=== PATIENT | male | born 1950 | race Two or more races ===

== ENCOUNTER 2022-03-30 04:47 | Inpatient (IN) | payer OTHER ==
[~2022-03-30] VITALS: Ht 190.5 cm; Wt 133.4 kg
--- NOTE | 2022-03-30 05:01 | NUR ---
NOTED PATIENT TO HAVE WEAKNESS ON LEFT ARM, PT CLAIMED THAT HE HAD HX OF CVA. HAS SWELLING OF LEFT LEG, ABRASIONS ON RIGHT KNEE. S/P KNEE REPLACEMENT LEFT.
--- NOTE | 2022-03-30 05:01 | NUR ---
BIBRA 860 FROM HOME FOR C/O BLE WEAKNESS AND PAIN AND LOWER BACK PAIN DENIES HITTING HEAD OR KO. PATIENT IS AAOX4. HAS HX OF MULTIPLE FALLS. PATIENT IS CONCERNED THAT HE MIGHT DISPLACE HIS ROTATOR CUFF ON HIS RIGHT SHOULDER. VITALS CHECKED.
--- NOTE | 2022-03-30 05:35 | NUR ---
BROUGHT TO CT DEPT
--- NOTE | 2022-03-30 06:20 | NUR ---
SEEN BY DR PICKERING AT BEDSIDE
--- NOTE | 2022-03-30 06:25 | NUR ---
EKG DONE AT BEDSIDE
--- NOTE | 2022-03-30 06:30 | NUR ---
COVID SWAB DONE AND SENT TO LAB
[2022-03-30 06:50] LABS: BASOPHILS % (AUTO) 0.3 % (0.0-2.0); EOSINOPHILS % (AUTO) 0.1 % (0.0-6.0); HEMATOCRIT 42 % (39-51); HEMOGLOBIN 14.1 g/dL (13.5-17.5); LYMPHOCYTES # (AUTO) 0.8 K/uL (0.8-4.8); LYMPHOCYTES % (AUTO) 6.9 % (20.0-44.0); MEAN CORPUSCULAR HGB CONC 34 g/dl (31.0-36.0); MEAN CORPUSCULAR VOLUME 90 fL (80-96); MONOCYTES # (AUTO) 0.4 K/uL (0.1-1.30); MONOCYTES % (AUTO) 3.6 % (2.0-12.0); NEUTROPHILS # (AUTO) 9.9 K/uL (1.8-8.9); NEUTROPHILS % (AUTO) 89.1 % (43.0-81.0); PLATELET COUNT (AUTO) 220 K/uL (150-450); RED BLOOD CELL COUNT(AUTO) 4.64 MIL/uL (4.5-6.0); WHITE BLOOD COUNT (AUTO) 11.2 K/uL (4.3-11.0)
--- NOTE | 2022-03-30 06:52 | NUR ---
DRYWALL METAL STUD WORKER AT BEDSIDE.
--- NOTE | 2022-03-30 07:22 | NUR ---
US TECH AT BEDSIDE
--- NOTE | 2022-03-30 07:22 | NUR ---
JUVENCIO FOR [facility] AT BEDSIDE.
--- NOTE | 2022-03-30 07:23 | NUR ---
REPORT GIVEN TO MICHAELLE PALMA
--- NOTE | 2022-03-30 07:28 | NUR ---
PT IS AWAKE, AAOX4, BREATHING EVEN AND UNLABORED. TACHYCARDIC, HR 104. COMFORT MEASURES IN PLACE. WILL CONTINUE TO MONITOR.
[2022-03-30 07:41] LABS: ALANINE AMINOTRANSFERASE 15 U/L (12-78); ALBUMIN 3.8 g/dL (3.4-5.0); ALKALINE PHOSPHATASE 85 U/L (46-116); ASPARTATE AMINOTRANSFERASE 15 U/L (15-37); BILIRUBIN,DIRECT 0.5 mg/dL (0.0-0.2); BILIRUBIN,TOTAL 2.3 mg/dL (0.2-1.0); CALCIUM, SERUM 9.5 mg/dL (8.5-10.1); CREATININE 1.3 mg/dL (0.6-1.3); GLUCOSE 211 mg/dL (74-106); TOTAL PROTEIN, SERUM 7.8 g/dL (6.4-8.2); UREA NITROGEN, BLOOD 16 mg/dL (7-18)
[2022-03-30] MEDS ORDERED: TIMO5DRO31 EACHEYE (07:41)
[2022-03-30] MEDS ORDERED: LEVO100T9 PO (07:41)
[2022-03-30] MEDS ORDERED: METF-440 PO (07:41)
[2022-03-30] MEDS ORDERED: LEVO150T8 PO (07:41)
[2022-03-30] MEDS ORDERED: ALLO300T2 PO (07:41)
[2022-03-30] MEDS ORDERED: CHOL200059 PO (07:41)
[2022-03-30] MEDS ORDERED: ATOR10TA PO (07:41)
[2022-03-30] MEDS ORDERED: APIX5TAB PO (07:41)
[2022-03-30] MEDS ORDERED: AMLO-213 PO (07:41)
[2022-03-30 08:01] LABS: CARBON DIOXIDE 23 mmol/L (21-32); CHLORIDE 98 mmol/L (98-107); SODIUM SERUM 134 mmol/L (136-145)
--- NOTE | 2022-03-30 08:16 | NUR ---
CALLED NURSING SUP REGARDING PT BED
--- NOTE | 2022-03-30 08:50 | NUR ---
report given to Neris BRASWELL for katlin
[2022-03-30] MEDS ORDERED: MAG HYDROX/AL HYDROX/SIMETH 30 ML UDC PO PRN (09:00)
[2022-03-30] MEDS ORDERED: ONDANSETRON HCL/PF 4 MG/2 ML VIAL IVP PRN (09:00)
[2022-03-30] MEDS ORDERED: IV NS 0.9% 1,000 ML IV PRN (09:00)
[2022-03-30] MEDS ORDERED: ZOLPIDEM TARTRATE 5 MG TABLET PO PRN (09:00)
[2022-03-30] MEDS ORDERED: MAGNESIUM HYDROXIDE 30 ML UDC PO PRN (09:00)
[2022-03-30] MEDS ORDERED: Z GUARD REMEDY 4 OZ OINT TP PRN (09:00)
--- NOTE | 2022-03-30 09:00 | NUR ---
DIRECTOR EQUIPMENT OPENING NOTE RECEIVED PATIENT FROM ER VIA GURNEY ACCOMPANIED BY 2 ER STAFF, ALERT & ORIENTED X 4. ON ROOM AIR WITH O2 SAT AT 98%. WITH LEFT ANTECUBITAL SALINE LOCK INTACT AND PATENT. HOOKED TO FLIGHT MECHANIC, ATRIAL FIBRILLATION AT 105 BPM. INITIAL ASSESSMENTS DONE. SKIN CHECKED, PHOTOGRAPHED AND DOCUMENTED PER HOSPITAL PROTOCOL. ORIENTED PATIENT TO ROOM AND EXPLAINED TO PATIENT THE NEED TO STAY IN BED AND TO CALL FOR ASSISTANCE USING CALL LIGHT. BED IS LOCKED IN LOWEST POSITION, 3 SIDE RAILS UP, CALL LIGHT WITHIN REACH. WILL CONTINUE TO MONITOR THROUGHOUT SHIFT.
[2022-03-30 12:32] VITALS: BP 127/78
[2022-03-30] MEDS ORDERED: DEXTROSE 50%-WATER 50 ML DISP.SYRIN IV PRN (14:00)
[2022-03-30] MEDS ORDERED: *INSULIN REGULAR(HUMULIN R)HUM 100 UNIT/ML VIAL SQ PRN (14:00)
[2022-03-30] MEDS: LEVOTHYROXINE SODIUM 100 MCG TABLET PO SCH (14:54)
[2022-03-30] MEDS: ACETAMINOPHEN 325 MG TABLET PO PRN ×2 (14:59→20:03)
--- NOTE | 2022-03-30 15:01 | NUR ---
RN NOTE PATIENT VERBALIZED SHOULDER PAIN 11/29. I OFFERED TYLENOL BUT HE REFUSED. HE SAYS "TYLENOL DOESN'T DO ANYTHING FOR ME." I OFFERED TO LET HIS DOCTOR KNOW AND SEE IF DOCTOR CAN GIVE HIM A STRONGER PAIN MED, BUT HE REFUSED, SAYING "I KNOW WHAT THEY'LL GIVE ME AND IT STILL WON'T WORK."
[2022-03-30 16:32] VITALS: BP 117/69
[2022-03-30 16:34] LABS: BILIRUBIN,URINE NEGATIVE (NEGATIVE); LEUKOCYTE ESTERASE ,URINE NEGATIVE (NEGATIVE); NITRITE, URINE NEGATIVE (NEGATIVE); PROTEIN,URINE 30 mg/dl (NEGATIVE); UGLUCOSE 250 MG/DL mg/dL (NEGATIVE)
[2022-03-30 16:39] LABS: COLOR,URINE DARK YELLOW (YELLOW)
[2022-03-30 16:55] LABS: BACTERIA,URINE Rare /HPF (None Seen); HYALINE CASTS, URINE Rare /LPF (None Seen); RBC,URINE 0-2 /HPF (0-2); SQUAMOUS EPITHELIAL CELL,UR Few /HPF (None Seen)
[2022-03-30] MEDS: BLOOD SUGAR DIAGNOSTIC 1 EACH STRIP VI SCH ×2 (17:55→22:00)
[2022-03-30] MEDS: CEFTRIAXONE 1 G in IV D5W 50 ML IV SCH (17:58)
[2022-03-30] MEDS: APIXABAN 5 MG TABLET PO SCH (17:59)
[2022-03-30] MEDS: INSULIN REGULAR, HUMAN 100 UNIT/ML 3 ML VIAL SQ PRN (18:12)
[2022-03-30] MEDS: AZITHROMYCIN 500 MG in IV D5W 250 ML IV SCH (18:45)
--- NOTE | 2022-03-30 18:52 | NUR ---
RN CLOSING NOTE PATIENT REMAINED STABLE THROUGHOUT SHIFT. TOLERATES ROOM AIR AT 98%. 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 DENIES CHEST PAIN, BREATHING UNLABORED AND NOT IN ANY FORM OF DISTRESS. LEFT ANTECUBITAL GAUGE 20 INTACT AND PATENT. ALL NEEDS ATTENDED. ALL HOSPITAL PRECAUTIONS KEPT IN PLACE. WILL ENDORSE TO ALLERGIST IMMUNOLOGIST NURSE.
[2022-03-30 20:00] VITALS: BP 119/73
--- NOTE | 2022-03-30 22:30 | NUR ---
patient blood sugar 143mg/dlL, per sliding scale to administer 2 units, patient refused insulin, stated that he never takes insulin or any antidiabetic education at home, educate about risks and benefit, still refused, MD aware.
[2022-03-31] VITALS: BP 104/66
[2022-03-31] MEDS: ACETAMINOPHEN 325 MG TABLET PO PRN (02:32)
[2022-03-31 04:00] VITALS: BP 114/79
--- NOTE | 2022-03-31 06:20 | NUR ---
RN CLOSING NOTES, PATIENT IN BED ASLEEP AT THIS TIME, AT ROOM AIR, NO SOB/ACUTE DISTRESS NOTED DURING THE NIGHT, AFIB CONTROLLED IN TELE MONITOR WITH HR 80S-90S, IV FLUIDS INFUSING ORDERED AND PATIENT TOLERATED WELL, TYLENOL ADMINISTERED TWICE DURING THE NIGHT FOR MILD PAIN IN GENERALIZED BODY, REFUSED INSULIN LAST NIGHT, OTHERWISE NO SIGNIFICANT ANT CHANGE IN CONDITION, BED LOCKED AND IN LOWEST POSITION, FALL PRECAUTIONS, EDUCATE HIM TO CALL FOR ASSISTANCE, CALL LIGHT W/I REACH, WILL ENDORSE CONTINUITY OF CARE TO ONCOMING NURSE.
--- NOTE | 2022-03-31 06:20 | NUR ---
PATIENT REFUSED CARE AND LINEN CHANGE DURING THE SHIFT, REFUSED TO WEAR GOWN, AND PATIENT STILL WITH THE ER LINEN FROM YESTERDAY WHEN HE WAS ADMITTED, MULTIPLE TIMES OFFER, PATIENT REFUSED.,
[2022-03-31 06:49] LABS: BASOPHILS % (AUTO) 0.4 % (0.0-2.0); EOSINOPHILS % (AUTO) 1.1 % (0.0-6.0); HEMATOCRIT 37 % (39-51); HEMOGLOBIN 12.8 g/dL (13.5-17.5); LYMPHOCYTES # (AUTO) 1.3 K/uL (0.8-4.8); LYMPHOCYTES % (AUTO) 23.4 % (20.0-44.0); MEAN CORPUSCULAR HGB CONC 35 g/dl (31.0-36.0); MEAN CORPUSCULAR VOLUME 89 fL (80-96); MONOCYTES # (AUTO) 0.4 K/uL (0.1-1.30); MONOCYTES % (AUTO) 6.8 % (2.0-12.0); NEUTROPHILS # (AUTO) 3.7 K/uL (1.8-8.9); NEUTROPHILS % (AUTO) 68.3 % (43.0-81.0); PLATELET COUNT (AUTO) 170 K/uL (150-450); RED BLOOD CELL COUNT(AUTO) 4.18 MIL/uL (4.5-6.0); WHITE BLOOD COUNT (AUTO) 5.4 K/uL (4.3-11.0)
[2022-03-31 07:01] LABS: CALCIUM, SERUM 8.9 mg/dL (8.5-10.1); MAGNESIUM 1.8 mg/dL (1.8-2.4); PHOSPHORUS 3.8 mg/dL (2.5-4.9); POTASSIUM 3.5 mmol/L (3.5-5.1)
--- NOTE | 2022-03-31 07:30 | NUR ---
RN OPENING NOTE PATIENT IS IN BED, AWAKE, ALERT ORIENTED X 4. ON ROOM AIR, WITH OXYGEN SATURATION AT 98%. VERBALIZES ARM PAIN WHICH HE STATES WAS DUE TO GROUND LEVEL FALL. DENIES CHEST PAIN, BREATHING UNLABORED AND NOT IN ANY FORM OF DISTRESS. ATRIAL FIBRILLATION ON LEGAL RESEARCHER. LEFT ANTECUBITAL LINE INTACT AND INFUSING WITH NS AT 75 ML/HR. BED IS LOCKED IN LOWEST POSITION, 3 SIDE RAILS UP, CALL LIGHT WITHIN REACH. WILL CONTINUE TO MONITOR THROUGHOUT SHIFT.
[2022-03-31] MEDS: BLOOD SUGAR DIAGNOSTIC 1 EACH STRIP VI SCH ×4 (07:54→21:21)
[2022-03-31 08:00] VITALS: BP 116/65
[2022-03-31 08:40] LABS: CHOLESTEROL 119 mg/dL (<200); HDL CHOLESTEROL 45 mg/dL (40-60); LDL 65 mg/dL (0-99); TRIGLYCERIDES 76 mg/dL (30-150)
[2022-03-31] MEDS ORDERED: TIMOLOL 0.5% SOLN OPHTH 5 ML BOTTLE EACHEYE SCH (09:00)
[2022-03-31] MEDS ORDERED: ATORVASTATIN 10 MG TABLET PO SCH (09:00)
[2022-03-31] MEDS: TIMOLOL 0.5% SOLN OPHTH 5 ML BOTTLE EACHEYE SCH (09:13)
[2022-03-31] MEDS: AMLODIPINE BESYLATE 10 MG TABLET PO SCH (09:14)
[2022-03-31] MEDS: ALLOPURINOL 100 MG TABLET PO SCH (09:14)
[2022-03-31] MEDS: CHOLECALCIFEROL 1,000 UNIT TABLET (VIT D3) PO SCH (09:15)
[2022-03-31] MEDS: APIXABAN 5 MG TABLET PO SCH ×2 (09:17→17:02)
[2022-03-31] MEDS: HYDROCODONE/APAP 10/325MG TABLET PO PRN ×2 (11:58→19:04)
[2022-03-31 12:00] VITALS: BP 107/72
--- NOTE | 2022-03-31 12:00 | NUR ---
RN NOTE PATIENT VERBALIZED PAIN IN RIGHT ARM AND SHOULDER. NORCO GIVEN PRN ORDERED.
[2022-03-31] MEDS: INSULIN REGULAR, HUMAN 100 UNIT/ML 3 ML VIAL SQ PRN (12:06)
[2022-03-31] MEDS: LEVOTHYROXINE SODIUM 100 MCG TABLET PO SCH (14:17)
[2022-03-31 16:00] VITALS: BP 109/73
[2022-03-31] MEDS: CEFTRIAXONE 1 G in IV D5W 50 ML IV SCH (17:02)
[2022-03-31] MEDS: AZITHROMYCIN 500 MG in IV D5W 250 ML IV SCH (17:35)
--- NOTE | 2022-03-31 19:02 | NUR ---
RN CLOSING NOTE PATIENT REMAINED STABLE THROUGHOUT SHIFT. TOLERATES ROOM AIR AT 98%. ATRIAL FIBRILLATION ON WEDDING COORDINATOR. DENIES CHEST PAIN, BREATHING UNLABORED AND NOT IN ANY FORM OF DISTRESS. LEFT ANTECUBITAL GAUGE 20 INTACT AND PATENT. ALL NEEDS ATTENDED. ALL HOSPITAL PRECAUTIONS KEPT IN PLACE. WILL ENDORSE TO DOCK SUPERINTENDENT NURSE.
--- NOTE | 2022-03-31 19:56 | NUR ---
RN NOTE RECEIVED PT AWAKE, AOX4 , WATCHING TV. 97% ON ROOM AIR. PT STATED PAIN IS GETTING BETTER. CONTROLLED AFIB ON TELE MONITOR WITH HR OF 97. IV LINE ON LFA PATENT AND INTACT. ISOLATION PRECAUTION OBSERVED. WILL CONTINUE TO MONITOR.
[2022-03-31 20:00] VITALS: BP 140/86
[2022-04-01] VITALS: BP 117/69
[2022-04-01] MEDS: HYDROCODONE/APAP 10/325MG TABLET PO PRN ×4 (01:54→20:06)
[2022-04-01 04:00] VITALS: BP 128/93
[2022-04-01 06:47] LABS: BASOPHILS % (AUTO) 0.7 % (0.0-2.0); EOSINOPHILS % (AUTO) 3.5 % (0.0-6.0); HEMATOCRIT 35 % (39-51); HEMOGLOBIN 12.2 g/dL (13.5-17.5); LYMPHOCYTES # (AUTO) 1.3 K/uL (0.8-4.8); LYMPHOCYTES % (AUTO) 30.8 % (20.0-44.0); MEAN CORPUSCULAR HGB CONC 35 g/dl (31.0-36.0); MEAN CORPUSCULAR VOLUME 88 fL (80-96); MONOCYTES # (AUTO) 0.4 K/uL (0.1-1.30); NEUTROPHILS # (AUTO) 2.3 K/uL (1.8-8.9); PLATELET COUNT (AUTO) 165 K/uL (150-450); RED BLOOD CELL COUNT(AUTO) 4.02 MIL/uL (4.5-6.0); WHITE BLOOD COUNT (AUTO) 4.2 K/uL (4.3-11.0)
--- NOTE | 2022-04-01 07:01 | NUR ---
RN NOTE PT SLEEPING, AROUSES EASILY. TOLERATES ROOM AIR. NOT IN ANY DISTRESS. DENIES PAIN AND SOB AT THIS TIME. AFIB CONTROLLED ON TELE MONITOR. PT CONTINENT, USING URINAL. REMAIN AFEBRILE. ISOLATION PRECAUTION MAINTAINED. ENDORSED TO HILL FOR CECILIA
[2022-04-01 07:12] LABS: ALBUMIN 3.2 g/dL (3.4-5.0); CALCIUM, SERUM 8.4 mg/dL (8.5-10.1); CREATININE 1.1 mg/dL (0.6-1.3); MAGNESIUM 1.8 mg/dL (1.8-2.4); PHOSPHORUS 4.5 mg/dL (2.5-4.9); POTASSIUM 3.8 mmol/L (3.5-5.1); TOTAL PROTEIN, SERUM 6.9 g/dL (6.4-8.2)
--- NOTE | 2022-04-01 07:50 | NUR ---
RN OPENING NOTE PATIENT IS IN BED, AWAKE, ALERT ORIENTED X 4. ON ROOM AIR. DENIES CHEST PAIN, BREATHING UNLABORED AND NOT IN ANY FORM OF DISTRESS. ATRIAL FIBRILLATION ON SOCK DRIER. LEFT ANTECUBITAL LINE INTACT AND INFUSING WITH NS AT 75 ML/HR. BED IS LOCKED IN LOWEST POSITION, 3 SIDE RAILS UP, CALL LIGHT WITHIN REACH.
[2022-04-01 08:00] VITALS: BP 115/76
[2022-04-01] MEDS: BLOOD SUGAR DIAGNOSTIC 1 EACH STRIP VI SCH ×4 (08:45→21:26)
[2022-04-01] MEDS: AMLODIPINE BESYLATE 10 MG TABLET PO SCH (08:57)
[2022-04-01] MEDS: CHOLECALCIFEROL 1,000 UNIT TABLET (VIT D3) PO SCH (08:58)
[2022-04-01] MEDS: APIXABAN 5 MG TABLET PO SCH ×2 (09:01→17:09)
[2022-04-01] MEDS: TIMOLOL 0.5% SOLN OPHTH 5 ML BOTTLE EACHEYE SCH (09:04)
[2022-04-01] MEDS: ALLOPURINOL 100 MG TABLET PO SCH (09:06)
[2022-04-01] MEDS: INSULIN REGULAR, HUMAN 100 UNIT/ML 3 ML VIAL SQ PRN ×3 (11:41→21:27)
[2022-04-01 12:00] VITALS: BP 126/73
[2022-04-01] MEDS: LEVOTHYROXINE SODIUM 100 MCG TABLET PO SCH (13:54)
[2022-04-01 16:00] VITALS: BP 135/71
[2022-04-01] MEDS: AZITHROMYCIN 250 MG TABLET PO SCH (17:07)
[2022-04-01] MEDS: CEFTRIAXONE 1 G in IV D5W 50 ML IV SCH (17:07)
--- NOTE | 2022-04-01 18:45 | NUR ---
RN CLOSING NOTE PATIENT REMAINED STABLE THROUGHOUT SHIFT. TOLERATES ROOM AIR . 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 DENIES CHEST PAIN, BREATHING UNLABORED AND NOT IN ANY FORM OF DISTRESS. LEFT ANTECUBITAL GAUGE 20 INTACT AND PATENT. ALL NEEDS ATTENDED. ALL HOSPITAL PRECAUTIONS KEPT IN PLACE. WILL ENDORSE TO TRASHMAN NURSE.
--- NOTE | 2022-04-01 19:30 | NUR ---
MS RN OPENING NOTE PATIENT IS IN BED, AWAKE, ALERT ORIENTED X 4. ON ROOM AIR, TOLERATING WELL NO S/S OF ACUTE DISTRESS.PATIENT MENTIONED PAIN 7/10, AND WOULD LIKE A NORCO WHEN HE IS ABLE. IV ACCESS LFA #20G, INTACT AND PATENT. BED IS LOCKED IN LOWEST POSITION, 3 SIDE RAILS UP, CALL LIGHT WITHIN REACH. WILL CONTINUE TO MONITOR THROUGHOUT SHIFT.
[2022-04-01 20:00] VITALS: BP 125/87
--- NOTE | 2022-04-01 20:06 | NUR ---
MS RN NOTE GAVE PATIENT HIS NORCO FOR PAIN 02/28
[2022-04-01] MEDS: ATORVASTATIN 10 MG TABLET PO SCH (21:17)
[2022-04-02] MEDS: HYDROCODONE/APAP 10/325MG TABLET PO PRN ×4 (02:42→22:19)
[2022-04-02 04:00] VITALS: BP 127/87
--- NOTE | 2022-04-02 06:49 | NUR ---
MS RN CLOSING NOTE PATIENT IS IN BED, ASLEEP EASILY ARSOUABLE, ALERT ORIENTED X 4. ON ROOM AIR, TOLERATING WELL NO S/S OF ACUTE DISTRESS. IV ACCESS LFA #20G, INTACT AND PATENT. PATIENT ABLE TO MAKE NEEDS KNOWN. ALL DUE MEDS GIVEN. VSS STABLE.BED IS LOCKED IN LOWEST POSITION, 3 SIDE RAILS UP, CALL LIGHT WITHIN REACH. WILL CONTINUE TO MONITOR THROUGHOUT SHIFT.
--- NOTE | 2022-04-02 07:30 | NUR ---
ms rn opening note patient is in bed awake, alert and oriented x4. patient is on room air, tolerating 97% on room air. patient has generalized weakness. patient is on cardiac diet. patient has iv access left forearm 20 guage, intact and patent. patient is able to make needs known. all safety measures in place. bed locked in lowest position. side rails up x2. call light with reach. will continue to assess throughout shift
[2022-04-02 08:00] VITALS: BP 124/73
[2022-04-02] MEDS: BLOOD SUGAR DIAGNOSTIC 1 EACH STRIP VI SCH ×4 (08:03→22:27)
--- NOTE | 2022-04-02 08:40 | NUR ---
patient blood sugar 130 no coverage
[2022-04-02] MEDS: APIXABAN 5 MG TABLET PO SCH ×2 (08:57→17:00)
[2022-04-02] MEDS: AMLODIPINE BESYLATE 10 MG TABLET PO SCH (08:57)
[2022-04-02] MEDS: ALLOPURINOL 100 MG TABLET PO SCH (08:58)
[2022-04-02] MEDS: CHOLECALCIFEROL 1,000 UNIT TABLET (VIT D3) PO SCH (08:58)
[2022-04-02] MEDS: TIMOLOL 0.5% SOLN OPHTH 5 ML BOTTLE EACHEYE SCH (10:59)
--- NOTE | 2022-04-02 11:30 | NUR ---
case management specialist spoke with patient.pending discharge
[2022-04-02] MEDS: INSULIN REGULAR, HUMAN 100 UNIT/ML 3 ML VIAL SQ PRN (13:28)
--- NOTE | 2022-04-02 13:29 | NUR ---
bs 154, insulin not given due to poor appetite
[2022-04-02] MEDS: LEVOTHYROXINE SODIUM 100 MCG TABLET PO SCH (14:13)
[2022-04-02 16:00] VITALS: BP 124/84
[2022-04-02] MEDS: CEFTRIAXONE 1 G in IV D5W 50 ML IV SCH ×2 (17:30→18:24)
--- NOTE | 2022-04-02 17:59 | NUR ---
rn note bs 131, did not administer insulin. patient refused and has poor appetite
[2022-04-02] MEDS: AZITHROMYCIN 250 MG TABLET PO SCH ×2 (18:00→18:24)
--- NOTE | 2022-04-02 18:00 | NUR ---
patient scheduled for discharge. patient was supposed to be picked up around 5:30 and ambulance would call for transportation pickup
--- NOTE | 2022-04-02 18:00 | NUR ---
gave report to maikel day at [facility]
--- NOTE | 2022-04-02 18:05 | NUR ---
patient scheduled for discharge. patient was supposed to be picked up around 1730 and ambulance would call for specific time transportation pickup. will followup
--- NOTE | 2022-04-02 18:18 | NUR ---
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
--- NOTE | 2022-04-02 18:30 | NUR ---
opened up azithromycin and mixed up ceftriaxone. notified charge nurse and will waste in medication room pharmaceutical waste only container
--- NOTE | 2022-04-02 18:57 | NUR ---
ms closing note patient is alert and oriented x4. patient is on med surg status. patient has bilateral lower extremities. patient is able to make needs known. patient is on cardiac diet. patient has left forearm 20 guage.iv patent and flushes well. patient uses urinal. all safety measures in place. call light within reach. bed locked in lowest position. pending discharge. will endorse to shift commander rn
--- NOTE | 2022-04-02 19:15 | NUR ---
RN NOTE RECEIVED PATIENT IN BED, AAO X 4, IN NO ACUTE DISTRESS, BREATHING UNLABORED, SATURATION AT 97% ON ROOM AIR, HR IS 65. IV LINE AT LFA 20G PATENT AND FLUSHING WELL, NO S/S OF INFECTION OR INFILTRATION. PATIENT IS CONTINENT AND USES URINAL. SAFETY MEASURES IN PLACE, BED IS LOCKED AND AT LOWEST POSITION. CALL LIGHT WITHIN REACH OF PATIENT. WILL CONT TO MONITOR AND REASSESS FOR ANY CHANGES.
[2022-04-02 20:00] VITALS: BP 129/85
--- NOTE | 2022-04-02 22:17 | NUR ---
MICHAELLE NOTES called [employer] but was put on hold for almost 2 hrs but to no avail Addendum: 04/02/22 at 2243 by DALLAS CRUZ RN 224 spoke to [place] at [employer], will look for vendor and will call us back. Primary MICHAELLE sexton
[2022-04-02] MEDS: ATORVASTATIN 10 MG TABLET PO SCH (22:20)
[2022-04-03 04:00] VITALS: BP 152/99
[2022-04-03] MEDS: HYDROCODONE/APAP 10/325MG TABLET PO PRN ×2 (05:38→11:55)
--- NOTE | 2022-04-03 07:30 | NUR ---
MS RN OPENING NOTES: RECEIVED PT IN IN BED AWAKE, ALERT AND ORIENTED X 4 AND ABLE TO VERBALIZED NEEDS. NO SOB OR CARDIAC DISTRESS NOTED/ ON ROOM AIR AND TOLERATING WELL. NOTED WITH IV ACCESS ON LFA g20 PATENT AND INTACT, SALINE LOCKED. KEPT RESTED AND COMFORTABLE. SAFETY PRECAUTIONS MAINTAINED: BED IN LOCKED ADN IN LOWEST POSITION, SIDE RAILS UP X 2. CALL LIGHT IN EASY REACH FOR HELP OR ASSISTANCE. WILL MONITOR FOR ANY SIGNIFICANT CHANGES.
[2022-04-03] MEDS: BLOOD SUGAR DIAGNOSTIC 1 EACH STRIP VI SCH ×2 (07:49→12:16)
[2022-04-03] MEDS: ALLOPURINOL 100 MG TABLET PO SCH (08:23)
[2022-04-03] MEDS: AMLODIPINE BESYLATE 10 MG TABLET PO SCH (08:24)
[2022-04-03] MEDS: APIXABAN 5 MG TABLET PO SCH (08:25)
--- NOTE | 2022-04-03 08:40 | NUR ---
RN NOTES: CALLED PHARMACY ORDERED TIMOLOL EYE DROP. WAITING FOR DELIVERY.
[2022-04-03] MEDS: CHOLECALCIFEROL 1,000 UNIT TABLET (VIT D3) PO SCH (08:43)
[2022-04-03] MEDS: TIMOLOL 0.5% SOLN OPHTH 5 ML BOTTLE EACHEYE SCH (10:12)
[2022-04-03 12:00] VITALS: BP 128/77
[2022-04-03] MEDS: INSULIN REGULAR, HUMAN 100 UNIT/ML 3 ML VIAL SQ PRN (12:18)
--- NOTE | 2022-04-03 13:34 | NUR ---
READING AIDE NOTES: PATIENT DISCHARGED TO [facility]. PATIENT ALERT AND ORIENTED X 4 AND ABLE TO VERBALIZED NEED, NO SOB OR CARDIAC DISTRESS NOTED, AFEBRILE. ON ROOM AIR AND TOLERATING WELL. IV ACCESS REMOVED AND IDENTIFICATION BAND IN PLACE. SKIN IS INTACT. REPORT GIVEN TO MICHAELLE HENRY. WRITTEN PRESCRIPTION OF PAIN MEDS SECURED IN PACKET. DISCHARGE PACKET GIVEN TO [employer], ALL BELONGINGS CARRIED AND SIGNED. PATIENT LEFT THE UNIT VIA GURNEY. PATIENT STABLE.
[2022-04-03] MEDS ORDERED: LEVOTHYROXINE SODIUM 75 MCG TABLET PO SCH (14:04)
== END 2022-04-03 14:00 | DRG 177 ==
LOC: ER 04:49 → TELE1 08:52 → MEDSG1 04-01 11:27
PROVIDERS: ADMIT Nurse Practitioner Acute Care; ATTEND Nurse Practitioner Acute Care
DX: U07.1 COVID-19 (principal); J12.82 Pneumonia due to coronavirus disease 2019; J15.9 Unspecified bacterial pneumonia; I69.354 Hemiplegia and hemiparesis following cerebral infarction affecting left non-dominant side; E87.1 Hypo-osmolality and hyponatremia; I48.91 Unspecified atrial fibrillation; R53.1 Weakness; E03.9 Hypothyroidism, unspecified; E11.9 Type 2 diabetes mellitus without complications; E66.9 Obesity, unspecified; E78.5 Hyperlipidemia, unspecified; E88.09 Other disorders of plasma-protein metabolism, not elsewhere classified; G89.29 Other chronic pain; I10 Essential (primary) hypertension; Z79.01 Long term (current) use of anticoagulants; M10.9 Gout, unspecified; R26.89 Other abnormalities of gait and mobility; Z68.36 Body mass index [BMI] 36.0-36.9, adult; E80.6 Other disorders of bilirubin metabolism; W18.30XA Fall on same level, unspecified, initial encounter; Y93.9 Activity, unspecified; Y92.009 Unspecified place in unspecified non-institutional (private) residence as the place of occurrence of the external cause; Z79.4 Long term (current) use of insulin
CPT/HCPCS: 36415; 70450-TC; 71045-TC; 72131-TC; 73030-TC; 76700-TC; 80048-TC; 80053-TC; 80061-TC; 80076-TC; 81001; 82533; 82962-TC; 83735-TC; 84100-TC; 84443-TC; 84484-TC; 85025-TC; 85378-TC; 85730-TC; 86140-TC; 87081-TC; 87086-TC; 93307-TC; 93970-TC; 97530-TC; C9803; G0378; J0456; J0696; J1815; J7030; J7040; J7060